=== PATIENT | male | born 1980 | race American Indian/Alaskan Native ===

== ENCOUNTER 2021-03-23 08:30 | Emergency (ER) | payer SELFPAY ==
[2021-03-23 08:34] VITALS: BP 126/79
--- NOTE | 2021-03-23 09:31 | Emergency Department Report ---
ED General Adult HPI - General Chief complaint: Skin/Abscess/Foreign Body Stated complaint: PAIN KNOT IN PELVIS AREA Time Seen by Provider: 03/23/21 09:24 Source: patient Mode of arrival: Ambulatory Limitations: No Limitations - History of Present Illness Initial comments: 40-year-old male patient presents emergency department with complaints of bilateral groin swelling progressively worsening for approximately 1 week. Patient states the swelling increases and becomes more painful with movement. No prior diagnosis of hernia. No prior surgeries. Last bowel movement was today. He is sexually active with one female partner. He does not use condoms. He also reports a painless lesion to the shaft of his penis appearing at the same time as his groin swelling. Denies fever, chills, abdominal pain, nausea, vomiting, diarrhea, constipation, melena, rectal bleeding, testicular pain/swelling, urinary symptoms. Denies all other complaints at this time. Severity scale (0 -10): 4 - Related Data Allergies Allergy/AdvReac Type Severity Reaction Status Date / Time No Known Allergies Allergy Unverified 03/23/21 08:32 ED Review of Systems ROS: Stated complaint: PAIN KNOT IN PELVIS AREA Other details as noted in HPI Other: GENERAL: Negative for fever, chills, weight change, anorexia, fatigue. ENT: Negative for ear pain, difficulty hearing, sore throat, nasal congestion, epistaxis. CARDIOVASCULAR: Negative for chest pain, palpitations, lower extremity swelling. PULMONARY: Negative for cough, dyspnea, wheezing, orthopnea, cyanosis. GASTROINTESTINAL: Negative for abdominal pain, nausea, vomiting, diarrhea, constipation. GENITOURINARY: Positive for groin swelling. MUSCULOSKELETAL: Negative for joint pain, joint swelling, myalgias, back pain, neck pain. NEUROLOGICAL: Negative for headache, seizure, syncope, paresthesias, weakness. INTEGUMENTARY: Negative for erythema, rash, diaphoresis, laceration, ecchymosis. HEMATOLOGICAL: Negative for hemoptysis, hematemesis, hematochezia, hematuria. PSYCHIATRIC: Negative for hallucinations, suicidal ideation, homicidal ideation, anxiety, depression. ED Past Medical Hx - Past Medical History Previous Medical History?: No - Surgical History Past Surgical History?: No - Social History Smoking Status: Current Every Day Smoker Substance Use Type: Alcohol, Marijuana ED Physical Exam - General Limitations: No Limitations - Other Other exam information: General: Awake, appropriately interactive, no acute distress. Neck: Supple. Full range of motion intact. Cardiovascular: Normal peripheral perfusion. Pulmonary: No respiratory distress. Patient is speaking normally without use of accessory muscles. 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 There is bilateral tender inguinal lymphadenopathy without overlying skin color changes. There is a small ulcerated lesion along the superior aspect of the penile shaft without overlying tenderness or purulent drainage. No evidence of inguinal hernia. No scrotal edema or tenderness. No testicular asymmetry. No blood or discharge at the urethral meatus. Neurological: No facial asymmetry. Speech is clear. Follows commands. Patient is alert and oriented. Musculoskeletal: Moves all four extremities spontaneously with normal range of motion. Psych: Cooperative. Appropriate mood and affect. ED Course Vital Signs 03/23/21 08:34 Temperature 98.4 F Pulse Rate 74 Respiratory 18 Rate Blood Pressure 126/79 [Right] O2 Sat by Pulse 100 Oximetry ED Medical Decision Making - Medical Decision Making Patient eloped from the emergency department prior to completion of diagnostic evaluation. Critical care attestation.: If time is entered above; I have spent that time in minutes in the direct care of this critically ill patient, excluding procedure time. ED Disposition Clinical Impression: Eloped from emergency department Disposition: Z-[id number] ELOPED Is pt being admited?: No Condition: Undetermined Time of Disposition: 09:30
[2021-03-23 10:33] LABS: Bilirubin,Urine NEG (Negative); Blood,Urine SM (Negative); Color,Urine Yellow (Yellow); Protein,Urine <15 mg/dL mg/dL (Negative); Urobilinogen,Urine < 2.0 mg/dL (<2.0); WBC,Urine < 1.0 /HPF (0.0-6.0)
== END 2021-03-23 09:30 | disposition left against medical advice (07) ==
LOC: ED 08:30
DX: R10.2 Pelvic and perineal pain (principal); M79.89 Other specified soft tissue disorders; Z53.21 Procedure and treatment not carried out due to patient leaving prior to being seen by health care provider
CPT/HCPCS: 36415; 81001; 86592; 87591